=== PATIENT | female | born 1940 | race Caucasian/White ===

== ENCOUNTER → 2017-02-16 | Outpatient (CLI) | payer OTHER, MEDICARE ==
[~2017-02-16] MED LIST: AZEL30SP NAE; CYAN10004 PO; FERR1TAB23; HYDR12.55 PO; LEVO50TA PO; LPR25 PO; MELA1TAB3 PO; MULTTAB PO; NSNN50; NUTRTAB48 PO; ROSU20TA PO; SIME1CAP PO; WARF1TAB6 PO; WARF3TAB6 PO
[2017-02-16 12:38] LABS: BASO % 0.5 %; BASO ABS # 0.04 K/uL (0-0.2); COMPLETE YES; EOS % 1.3 %; HEMATOCRIT 44.5 % (37-47); IG% 0.1 %; LYMPH ABS # 1.82 K/uL (1.2-3.4); MEAN CELL VOLUME 89.9 fL (80-100); MEAN CORPUSCULAR HEMOGLOBIN 29.7 pg (25-34); MONO % 6.8 %; NEUT % 69.3 %; PLATELET COUNT 321 K/uL (130-400); RED BLOOD COUNT 4.95 M/uL (4.2-5.4); WHITE BLOOD COUNT 8.26 K/uL (4.8-10.8)
[2017-02-16 14:09] LABS: ALKALINE PHOSPHATASE 80 U/L (45-117); ALT/SGPT 31 U/L (12-78); AST/SGOT 14 U/L (15-37); BLOOD UREA NITROGEN 16 mg/dl (7-18); BUN/CREATININE RATIO 21.5 (10-20); CALCIUM 9.4 mg/dl (8.5-10.1); CARBON DIOXIDE 27 mmol/L (21-32); CHLORIDE 110 mmol/L (98-107); CHOLESTEROL 209 mg/dl (0-200); CREATININE 0.73 mg/dl (0.60-1.20); GLUCOSE 88 mg/dl (70-99); SODIUM 145 mmol/L (136-145)
[2017-02-16 14:21] LABS: CHOLESTEROL/HDL RATIO 3.7; HDL CHOLESTEROL 56 mg/dl; LDL CHOLESTEROL CALCULATED 121 mg/dl; TOTAL IRON BINDING CAPACITY 396 mcg/dl (250-450); TRIGLYCERIDES 160 mg/dl (0-150); VERY LOW DENSITY LIPOPROT CALC 32 mg/dl
== END | disposition home or self-care (01) ==
LOC: C.LABPBG 08:40
PROVIDERS: ATTEND Family Medicine
DX: E03.9 Hypothyroidism, unspecified (principal); I10 Essential (primary) hypertension; E78.00 Pure hypercholesterolemia, unspecified; D50.9 Iron deficiency anemia, unspecified

== ENCOUNTER → 2017-05-05 | Outpatient (CLI) | payer OTHER, MEDICARE ==
[2017-05-05 13:37] LABS: URINE APPEARANCE CLEAR (CLEAR); URINE BILIRUBIN NEG (NEG); URINE COLOR YELLOW; URINE NITRITE NEG (NEG); URINE PH 5.5 (4.5-7.5); URINE SPECIFIC GRAVITY 1.022 (1.000-1.030); UROBILINOGEN NEG (NEG)
[2017-05-05 13:47] LABS: MANUAL MICROSCOPIC REQUIRED? NO; REVIEW REQ? YES
== END | disposition home or self-care (01) ==
LOC: C.LABBC 09:08
PROVIDERS: ATTEND Physician Assistant Medical
DX: R39.9 Unspecified symptoms and signs involving the genitourinary system (principal)

== ENCOUNTER → 2017-05-06 | Outpatient (CLI) | payer OTHER, MEDICARE ==
--- NOTE | 2017-05-06 14:04 | MAMMOGRAPHY REPORT ---
BILATERAL DIGITAL SCREENING MAMMOGRAM WITH CAD: 05/06/2017 CLINICAL HISTORY: Routine screening. Patient has no complaints. TECHNIQUE: Current study was also evaluated with a Computer Aided Detection (CAD) system. Bilateral CC and MLO views were obtained. COMPARISON: Comparison is made to exams dated: 05/05/2016 mammogram, 05/03/2015 mammogram, 05/02/2014 mamm ogram, 05/01/2013 mammogram, 04/27/2012 mammogram, and 04/27/2011 mammogram - [facility]. BREAST COMPOSITION: The tissue of both breasts is almost entirely fatty. FINDINGS: No suspicious masses, calcifications, or areas of architectural distortion are noted in ei ther breast. There has been no significant interval change compared to prior exams. A biopsy marker clip is again noted in the left 12:00 breast. Bilateral benign-appearing calcifications are again no miya. IMPRESSION: ACR BI-RADS CATEGORY 2: BENIGN There is no mammographic evidence of malignancy. A 1 year screening mammogram is recommended. The pa tient will receive written notification of the results. Approximately 10% of breast cancers are not detected with mammography. A negative mammographic report should not delay biopsy if a clinically suggestive mass is present. Radha Johnson M.D. /:05/06/2017 11:18:46 Property Claims Adjuster: Kristen Toure, [facility] letter sent: Normal 1/2 BI-RADS Code: ACR BI-RADS Category 2: Benign
== END | disposition home or self-care (01) ==
LOC: C.MAMM 10:20
PROVIDERS: ATTEND Physician Assistant
DX: Z12.31 Encounter for screening mammogram for malignant neoplasm of breast (principal); M85.89 Other specified disorders of bone density and structure, multiple sites

== ENCOUNTER → 2017-05-12 | Outpatient (CLI) | payer OTHER, MEDICARE ==
--- NOTE | 2017-05-12 13:07 | DIAGNOSTIC IMAGING REPORT ---
CHEST 2 VIEWS ROUTINE CLINICAL HISTORY: 77 years-old Female presenting with history of excessive sweating for 3 weeks, shortness of breath for months. TECHNIQUE: PA and lateral views of the chest were obtained. COMPARISON: CT chest from 03/25/2015. FINDINGS: Atherosclerosis of aortic arch. Cardiac silhouette normal. Lungs and pleural spaces clear. Slight exaggerated thoracic kyphosis. No discrete compression deformity. Cholecystectomy clips noted. Hiatal hernia noted. IMPRESSION: 1. No acute cardiopulmonary disease. Electronically signed by: Diego York M.D. 05/12/2017 1:06 PM Dictated Date/Time: 05/12/2017 1:04 PM
[2017-05-12 13:32] LABS: BASO % 0.4 %; BASO ABS # 0.04 K/uL (0-0.2); COMPLETE YES; EOS % 1.1 %; HEMATOCRIT 44.7 % (37-47); IG% 0.3 %; LYMPH % 17.8 %; LYMPH ABS # 1.71 K/uL (1.2-3.4); MEAN CELL VOLUME 89.4 fL (80-100); MEAN CORPUSCULAR HEMOGLOBIN 30.6 pg (25-34); MEAN CORPUSCULAR HGB CONC 34.2 g/dl (32-36); MEAN PLATELET VOLUME 11.5 fL (7.4-10.4); MONO % 6.9 %; NEUT % 73.5 %; PLATELET COUNT 317 K/uL (130-400); WHITE BLOOD COUNT 9.59 K/uL (4.8-10.8)
[2017-05-12 17:07] LABS: ALT/SGPT 31 U/L (12-78); AST/SGOT 19 U/L (15-37); BLOOD UREA NITROGEN 19 mg/dl (7-18); BUN/CREATININE RATIO 24.1 (10-20); CALCIUM 9.8 mg/dl (8.5-10.1); CARBON DIOXIDE 30 mmol/L (21-32); CHLORIDE 105 mmol/L (98-107); CREATININE 0.78 mg/dl (0.60-1.20); GLUCOSE 89 mg/dl (70-99); SODIUM 139 mmol/L (136-145)
[2017-05-12 17:17] LABS: ALKALINE PHOSPHATASE 90 U/L (45-117); THYROID STIMULATING HORMONE 0.889 uIu/ml (0.300-4.500)
[2017-05-12 17:29] LABS: LYME DISEASE AB IGG NEG (NEG); LYME DISEASE AB IGM NEG (NEG)
== END | disposition home or self-care (01) ==
LOC: C.RADBC 12:19
PROVIDERS: ATTEND Physician Assistant
DX: E03.9 Hypothyroidism, unspecified (principal); Z87.898 Personal history of other specified conditions; R79.89 Other specified abnormal findings of blood chemistry; N28.89 Other specified disorders of kidney and ureter

== ENCOUNTER → 2017-05-12 | Outpatient (CLI) | payer OTHER, MEDICARE ==
[~2017-05-12] MED LIST changes: +OPTIRAY 320 IV PRN
--- NOTE | 2017-05-12 17:55 | DIAGNOSTIC IMAGING REPORT ---
(CHEST FOR PE) ANGIO WITH CT DOSE: 504.51 mGycm HISTORY: Chest pain. Dyspnea. ELEVATED D-DIMER TECHNIQUE: Multiaxial CT images of the chest were performed following the intravenous administration of contrast to evaluate the pulmonary arteries. Maximal intensity projection images were also obtained. A dose lowering technique was utilized adhering to the principles of ALARA. COMPARISON STUDY: 03/25/2015 FINDINGS: Mild atherosclerotic change thoracic aorta with no evidence for aneurysm or dissection. Pulmonary vasculature enhances appropriately. Subtle in homogeneity of enhancement of the left main pulmonary artery most likely technical and related to flow phenomenon. Mild interstitial and peribronchial prominence bilaterally. Mild esophageal wall thickening. Large fixed hiatal hernia unchanged from the prior exam. Considerable degenerative change of the thoracic spine. No evidence for compression deformity. IMPRESSION: 1. No evidence for pulmonary embolus. 2. Interstitial prominence throughout both hemithoraces with mild peribronchial thickening. 3. Mild esophageal wall thickening 4. Fixed hiatal hernia unchanged from the prior exam. 5. Several nonobstructing left renal calcifications. 6. Considerable degenerative change of the thoracic spine The above report was generated using voice recognition software. It may contain grammatical, syntax or spelling errors. Electronically signed by: Abraham Brewster M.D. 05/12/2017 5:53 PM Dictated Date/Time: 05/12/2017 5:49 PM
== END | disposition home or self-care (01) ==
LOC: C.CTS 17:13
PROVIDERS: ATTEND Physician Assistant
DX: R79.89 Other specified abnormal findings of blood chemistry (principal); N28.89 Other specified disorders of kidney and ureter

== ENCOUNTER → 2017-06-01 | Outpatient (CLI) | payer OTHER, MEDICARE ==
[~2017-06-01] MED LIST changes: -OPTIRAY 320 IV PRN
[2017-06-01 14:20] LABS: BLOOD UREA NITROGEN 17 mg/dl (7-18); CALCIUM 9.8 mg/dl (8.5-10.1); CARBON DIOXIDE 28 mmol/L (21-32); CHLORIDE 105 mmol/L (98-107); CREATININE 0.91 mg/dl (0.60-1.20); GLUCOSE 102 mg/dl (70-99); POTASSIUM 3.9 mmol/L (3.5-5.1); SODIUM 139 mmol/L (136-145)
== END | disposition home or self-care (01) ==
LOC: C.LABBC 09:20
PROVIDERS: ATTEND Physician Assistant
DX: I10 Essential (primary) hypertension (principal)

== ENCOUNTER → 2018-05-09 | Outpatient (CLI) | payer OTHER, MEDICARE ==
--- NOTE | 2018-05-10 14:59 | MAMMOGRAPHY REPORT ---
BILATERAL DIGITAL SCREENING MAMMOGRAM TOMOSYNTHESIS WITH CAD: 05/09/2018 CLINICAL HISTORY: Routine screening. TECHNIQUE: The study was acquired using full field digital technology and interpreted from soft copy. Breast tomosynthesis in addition to standard 2D mammography was performed. Current study was also ev aluated with a Computer Aided Detection (CAD) system. COMPARISON: Comparison is made to exams dated: 05/06/2017 mammogram, 05/05/2016 mammogram, 05/03/2015 [facility] m[facility], 05/02/2014 mammogram, 05/01/2013 mammogram, and 04/27/2012 mammogram - [facility] . BREAST COMPOSITION: The tissue of both breasts is almost entirely fatty. FINDINGS: A grouping of punctate micro calcifications in the right upper outer quadrant is unchanged dating back to at least 04/02/2010, therefore considered benign. There is a stable ribbon-shaped biops y marker clip in the 12:00 left breast and a few scattered benign rim calcifications. No suspicious m ass, architectural distortion or cluster of microcalcifications is seen. IMPRESSION: ACR BI-RADS CATEGORY 1: NEGATIVE There is no mammographic evidence of malignancy. A 1 year screening mammogram is recommended.( [id number]) The patient will receive written notification of the results. Some breast cancers are not detected with mammography. A negative mammographic report should not piper y biopsy if a clinically suggestive mass is present. Charline Rader M.D. ay/:05/09/2018 17:12:02 Design Checker: RT Belen(Vaishali)(M), [facility] letter sent: Normal 1/2 BI-RADS Code: ACR BI-RADS Category 1: Negative
== END | disposition home or self-care (01) ==
LOC: C.MAMM 11:21
PROVIDERS: ATTEND Physician Assistant
DX: Z12.31 Encounter for screening mammogram for malignant neoplasm of breast (principal)